=== PATIENT | female | born 1990 | race African-American/Black ===

== ENCOUNTER 2021-10-28 21:31 | Emergency (ER) | payer BC ==
[~2021-10-28] VITALS: Ht 177.8 cm; Wt 100.0 kg
[2021-10-28] MEDS ORDERED: BACITRACIN ZINC OINT UDPKT TOP ONE (22:30)
[2021-10-28] MEDS ORDERED: LIDOCAINE HCL/PF 1% 10 MG/ML 5ML VIAL INFIL ONE (22:30)
[2021-10-28] MEDS ORDERED: IBUPROFEN 600MG TABLET PO ONE (22:30)
[2021-10-28] MEDS ORDERED: LIDOCAINE HCL 1% 20ML VIAL (Pyxis) INJ INFIL NR (23:00)
[2021-10-28 23:41] VITALS: BP 136/71
== END 2021-10-28 23:43 | disposition home or self-care (01) ==
LOC: EDSEX 21:31 → ER 21:31
DX: S61.511A Laceration without foreign body of right wrist, initial encounter (principal); W25.XXXA Contact with sharp glass, initial encounter; Y93.89 Activity, other specified; Y92.9 Unspecified place or not applicable
CPT/HCPCS: 12002; 99283; J3490; 12053